=== PATIENT | female | born 1960 | race Caucasian/White ===

== ENCOUNTER 2021-04-05 14:18 | Inpatient (IN) | payer MEDICARE ==
[2021-04-05] MEDS ORDERED: Melatonin 3 MG Tab PO PRN (15:04)
--- NOTE | 2021-04-05 17:01 | PCM.HP.2 ---
H&P History of Present Illness - General Date of Service: 04/05/21 Admit Problem/Dx: Admission Diagnosis/Problem Admission Diagnosis/Problem Necrotizing fasciitis Source of Information: Patient, Old Records History Limitations: Reports: No Limitations - History of Present Illness Initial Comments - Free Text/Narative: This is a 61yo F here for swing bed admission post hospital stay for abdominal wall abscess, necrotizing fasciitis. She was discharged from [place] and continues to require dressing changes and tube feedings. Duration of Symptoms: Reports: Constant Location: Reports: Abdomen Middle Abdomen Pain Score (Numeric/FACES): 10 - Related Data Allergies/Adverse Reactions: Allergies Allergy/AdvReac Type Severity Reaction Status Date / Time hydroxyzine HCl Allergy Unknown ulcers Verified 06/07/14 17:06 [From Vistaril] hydroxyzine pamoate Allergy Unknown ulcers Verified 06/07/14 17:06 [From Vistaril] morphine Allergy Unknown Doesn't Verified 06/07/14 17:06 work metoclopramide HCl Allergy Vomiting Verified 06/07/14 19:36 [From Reglan] Penicillins Allergy Hives Verified 06/07/14 17:06 prochlorperazine edisylate Allergy Vomiting Verified 06/07/14 17:06 [From Compazine] prochlorperazine maleate Allergy Vomiting Verified 06/07/14 17:06 [From Compazine] Home Medications: Home Meds NK [No Known Home Meds] 06/07/14 [History] H&P Review of Systems - Review of Systems: Review Of Systems: Comprehensive ROS is negative, except as noted in HPI. Exam - Exam Exam: See Below - Exam General: Alert, Oriented, Cooperative HEENT: PERRLA, Conjunctiva Clear, EACs Clear Neck: Supple, Trachea Midline Lungs: Clear to Auscultation, Normal Respiratory Effort Cardiovascular: Regular Rate, Regular Rhythm GI/Abdominal Exam: Normal Bowel Sounds Back Exam: Normal Inspection Extremities: Normal Inspection - Problem List (1) Abdominal wall abscess SNOMED Code(s): 02362830 ICD Code: L02.211 - CUTANEOUS ABSCESS OF ABDOMINAL WALL Status: Resolved Priority: High Current Visit: Yes Problem Details: Requires packing (2) Necrotizing fasciitis SNOMED Code(s): 84593773 ICD Code: M72.6 - NECROTIZING FASCIITIS Status: Resolved Current Visit: No Problem List Initiated/Reviewed/Updated: Yes Orders Last 24hrs: Active Orders 24 hr Category Date Time Status Admission Status [Patient Status] [ADT] Routine ADT 04/05/21 11:00 Active Activity as Tolerated [RC] .Routine Care 04/05/21 12:00 Active Wound Care [RC] BID Care 04/05/21 11:00 Active Soft Diet [DIET] Diet 04/05/21 Lunch Ordered CORONAVIRUS COVID-19 RAPID [MOLEC] Routine Lab 04/05/21 16:47 Ordered CULTURE MRSA [RM] Routine Lab 04/05/21 13:00 Ordered Acetaminophen [TylenoL] Med 04/05/21 15:14 Active 650 mg JTUBE Q6H PRN Enoxaparin [Lovenox] Med 04/06/21 08:00 Active 40 mg SUBCUT DAILY Heparin Sodium [Heparin Lock Flush 100 Units/ML] Med 04/05/21 22:00 Active 100 unit FLUSH Q8HR Lidocaine 5% [Lidoderm 5%] Med 04/06/21 08:00 Active 700 mg TOP DAILY Melatonin Med 04/05/21 15:05 Active 3 mg JTUBE BEDTIME PRN Multivitamins [Children's Chewable Vitamin] Med 04/06/21 08:00 Active 1 tab JTUBE DAILY Non-Formulary Medication [NF Drug] Med 04/05/21 16:00 Active 1 each TOP BID Piperacillin/Tazobactam [Zosyn] 4.5 gm Med 04/05/21 16:00 Active Sodium Chloride 0.9% [Normal Saline] 100 ml IV Q8H Sodium Chloride 0.9% [Normal Saline] Med 04/05/21 22:00 Active 20 ml FLUSH Q8HR Zolpidem [Ambien] Med 04/05/21 15:17 Active 5 mg JTUBE BEDTIME PRN tiZANidine [Zanaflex] Med 04/05/21 20:00 Active 2 mg JTUBE BID traMADol [Ultram] Med 04/05/21 18:00 Active 50 mg JTUBE Q6H Medication Orders Acetaminophen (Acetaminophen 325 Mg Tab) 650 mg JTUBE Q6H PRN PRN Reason: Pain Enoxaparin Sodium (Enoxaparin 40 Mg/0.4 Ml Syringe) 40 mg SUBCUT DAILY ALEJANDRO Heparin Sodium (Porcine) (Heparin Sodium 100 Units/Ml 30 Ml Mdv) 100 unit FLUSH Q8HR ALEJANDRO Piperacillin Sod/Tazobactam (Sod 4.5 gm/ Sodium Chloride) 100 mls @ 25 mls/hr IV Q8H [facility] Stop: 04/10/21 16:01 Lidocaine (Lidocaine 5% 700 Mg Patch) 700 mg TOP DAILY ALEJANDRO Melatonin (Melatonin 3 Mg Tab) 3 mg JTUBE BEDTIME PRN PRN Reason: Insomnia Multivitamins/Minerals/Vitamin C (Multivitamin, Childrens Tab.Chew) 1 tab JTUBE DAILY [facility] Acetic Acid Solution 0.25% Irrigation Soln 1 each TOP BID ALEJANDRO Sodium Chloride (Sodium Chloride 0.9% 20 Ml Sdv) 20 ml FLUSH Q8HR ALEJANDRO Tizanidine HCl (Tizanidine 2 Mg Tab) 2 mg JTUBE BID ALEJANDRO Tramadol HCl (Tramadol 50 Mg Tab) 50 mg JTUBE Q6H [facility] Stop: 04/08/21 18:01 Zolpidem Tartrate (Zolpidem 5 Mg Tab) 5 mg JTUBE BEDTIME PRN PRN Reason: Insomnia Assessment/Plan Comment:: Patient to continue wound care, packing and enteral feedings.
[2021-04-05] MEDS: ACETIC ACID 0.25% TOP SCH ×2 (17:45→19:58)
[2021-04-05 18:01] LABS: CORONAVIRUS COVID-19 NAA NEGATIVE (NEGATIVE)
[2021-04-05] MEDS: oxyCODONE 5 MG Tab PO PRN ×2 (18:07→21:58)
[2021-04-05] MEDS: traMADol 50 MG Tab JTUBE SCH (18:08)
[2021-04-05] MEDS: Piperacillin/Tazobactam 4.5 GM in Sodium Chloride 0.9% 100 ML IV SCH (18:13)
[2021-04-05] MEDS: tiZANidine 2 MG Tab JTUBE SCH (21:59)
[2021-04-05] MEDS ORDERED: HEPARIN SODIUM FLUSH SCH (22:00)
[2021-04-05] MEDS ORDERED: Sodium Chloride 0.9% 20 ML SDV FLUSH SCH (22:00)
[2021-04-05] MEDS: Melatonin 3 MG Tab JTUBE PRN (23:00)
[2021-04-05] MEDS: Zolpidem 5 MG Tab JTUBE PRN (23:00)
[2021-04-06] MEDS: traMADol 50 MG Tab JTUBE SCH ×4 (00:42→17:33)
[2021-04-06] MEDS: Sodium Chloride 0.9% 20 ML SDV FLUSH SCH ×3 (04:27→20:14)
[2021-04-06] MEDS: HEPARIN SODIUM FLUSH SCH ×2 (04:27→11:48)
[2021-04-06] MEDS: Multivitamin, Childrens Tab.Chew JTUBE SCH (07:26)
[2021-04-06] MEDS: oxyCODONE 5 MG Tab PO PRN ×3 (07:26→19:20)
[2021-04-06] MEDS: tiZANidine 2 MG Tab JTUBE SCH ×2 (07:26→19:20)
[2021-04-06] MEDS: Piperacillin/Tazobactam 4.5 GM in Sodium Chloride 0.9% 100 ML IV SCH ×4 (07:38→16:12)
[2021-04-06] MEDS: Enoxaparin 40 MG/0.4 ML Syringe SUBCUT SCH (07:41)
[2021-04-06] MEDS: Lidocaine 5% 700 MG Patch TOP SCH (07:43)
[2021-04-06] MEDS ORDERED: Tuberculin, PPD 5 Units/0.1 ML 1 ML MDV IDERM ONE (08:00)
[2021-04-06] MEDS: Ondansetron 4 MG/2 ML SDV IVPUSH PRN ×2 (08:51→17:33)
[2021-04-06] MEDS: Acetaminophen 325 MG Tab JTUBE PRN (16:18)
[2021-04-06] MEDS: Melatonin 3 MG Tab JTUBE PRN (23:30)
[2021-04-06] MEDS: Zolpidem 5 MG Tab JTUBE PRN (23:30)
[2021-04-07] MEDS: traMADol 50 MG Tab JTUBE SCH ×5 (04:39→23:40)
[2021-04-07] MEDS: Sodium Chloride 0.9% 20 ML SDV FLUSH SCH ×3 (04:41→20:43)
[2021-04-07] MEDS: Enoxaparin 40 MG/0.4 ML Syringe SUBCUT SCH (07:50)
[2021-04-07] MEDS: Lidocaine 5% 700 MG Patch TOP SCH (07:50)
[2021-04-07] MEDS: tiZANidine 2 MG Tab JTUBE SCH ×2 (07:51→20:43)
[2021-04-07] MEDS: Multivitamin, Childrens Tab.Chew JTUBE SCH (07:51)
[2021-04-07] MEDS: Piperacillin/Tazobactam 4.5 GM in Sodium Chloride 0.9% 100 ML IV SCH ×5 (07:53→23:41)
[2021-04-07] MEDS: oxyCODONE 5 MG Tab PO PRN ×2 (09:45→20:43)
[2021-04-07] MEDS: HEPARIN SODIUM FLUSH SCH (12:02)
[2021-04-07] MEDS: Ondansetron 4 MG/2 ML SDV IVPUSH PRN (20:44)
[2021-04-07] MEDS: Melatonin 3 MG Tab JTUBE PRN (23:40)
[2021-04-07] MEDS: Zolpidem 5 MG Tab JTUBE PRN (23:40)
[2021-04-08] MEDS: Sodium Chloride 0.9% 20 ML SDV FLUSH SCH ×3 (04:18→20:30)
[2021-04-08] MEDS: traMADol 50 MG Tab JTUBE SCH ×3 (05:39→18:19)
[2021-04-08] MEDS: Enoxaparin 40 MG/0.4 ML Syringe SUBCUT SCH (08:44)
[2021-04-08] MEDS: Multivitamin, Childrens Tab.Chew JTUBE SCH (08:45)
[2021-04-08] MEDS: Piperacillin/Tazobactam 4.5 GM in Sodium Chloride 0.9% 100 ML IV SCH ×3 (09:33→23:43)
[2021-04-08] MEDS: oxyCODONE 5 MG Tab PO PRN ×2 (09:40→20:15)
[2021-04-08] MEDS: Lidocaine 5% 700 MG Patch TOP SCH (09:40)
[2021-04-08] MEDS: Ondansetron 4 MG/2 ML SDV IVPUSH PRN (09:53)
[2021-04-08] MEDS: tiZANidine 2 MG Tab JTUBE SCH ×2 (10:00→20:15)
[2021-04-08] MEDS: HEPARIN SODIUM FLUSH SCH ×2 (12:57→13:36)
[2021-04-08] MEDS: Zolpidem 5 MG Tab JTUBE PRN (22:30)
[2021-04-08] MEDS: Melatonin 3 MG Tab JTUBE PRN (22:31)
[2021-04-09] MEDS: Sodium Chloride 0.9% 20 ML SDV FLUSH SCH ×3 (04:05→20:45)
[2021-04-09] MEDS: Multivitamin, Childrens Tab.Chew JTUBE SCH (08:08)
[2021-04-09] MEDS: oxyCODONE 5 MG Tab PO PRN ×3 (08:08→19:21)
[2021-04-09] MEDS: tiZANidine 2 MG Tab JTUBE SCH ×2 (08:10→19:22)
[2021-04-09] MEDS: Lidocaine 5% 700 MG Patch TOP SCH (08:10)
[2021-04-09] MEDS: Enoxaparin 40 MG/0.4 ML Syringe SUBCUT SCH (08:11)
[2021-04-09] MEDS: Ondansetron 4 MG/2 ML SDV IVPUSH PRN ×2 (08:16→21:41)
[2021-04-09] MEDS: Piperacillin/Tazobactam 4.5 GM in Sodium Chloride 0.9% 100 ML IV SCH ×3 (08:20→23:28)
[2021-04-09] MEDS: HEPARIN SODIUM FLUSH SCH ×2 (12:47→20:45)
[2021-04-09] MEDS ORDERED: Non-Formulary Medication 1 Each IM ONE (13:00)
[2021-04-09] MEDS ORDERED: COVID-19 VACC, MRNA(MODERNA)/PF 100 MCG/0.5 ML VIAL IM ONE (13:00)
[2021-04-09] MEDS: Zolpidem 5 MG Tab JTUBE PRN (23:04)
[2021-04-09] MEDS: Melatonin 3 MG Tab JTUBE PRN (23:04)
[2021-04-10] MEDS: HEPARIN SODIUM FLUSH SCH (03:50)
[2021-04-10] MEDS: Sodium Chloride 0.9% 20 ML SDV FLUSH SCH (03:50)
[2021-04-10] MEDS: Acetaminophen 325 MG Tab JTUBE PRN (04:40)
[2021-04-10] MEDS: oxyCODONE 5 MG Tab PO PRN ×2 (04:41→08:24)
[2021-04-10] MEDS: Piperacillin/Tazobactam 4.5 GM in Sodium Chloride 0.9% 100 ML IV SCH (08:23)
[2021-04-10] MEDS: Multivitamin, Childrens Tab.Chew JTUBE SCH (08:24)
[2021-04-10] MEDS: tiZANidine 2 MG Tab JTUBE SCH (08:24)
[2021-04-10] MEDS: Enoxaparin 40 MG/0.4 ML Syringe SUBCUT SCH (08:27)
[2021-04-10] MEDS: Lidocaine 5% 700 MG Patch TOP SCH (08:29)
[2021-04-10] MEDS: Ondansetron 4 MG/2 ML SDV IVPUSH PRN (08:49)
[2021-04-10 10:45] VITALS: BP 106/44; PULSE 84
--- NOTE | 2021-04-10 10:57 | PCM.DCSUM1 ---
Discharge Summary - Hospital Course HPI Initial Comments: This is a 61[facility] F [facility] for dressing changes, medication dosing, tube feeding and pain management post abdominal wall abscess and necrotizing fasciitis. Brief History: Dressing changes have gone well with no concerns. Patient in good spirits without any concerns. - Discharge Data Discharge Date: 04/10/21 Discharge Disposition: Home, Self-Care 01 Condition: Good - Referral to Home Health Primary Care Physician: PCP None - Discharge Diagnosis/Problem(s) (1) Abdominal wall abscess SNOMED Code(s): 71802314 ICD Code: L02.211 - CUTANEOUS ABSCESS OF ABDOMINAL WALL Status: Resolved Priority: High Current Visit: Yes Problem Details: Requires packing (2) Necrotizing fasciitis SNOMED Code(s): 00846393 ICD Code: M72.6 - NECROTIZING FASCIITIS Status: Resolved Current Visit: No - Patient Instructions Diet: Usual Diet as Tolerated Activity: As Tolerated - Discharge Plan *PRESCRIPTION DRUG MONITORING PROGRAM REVIEWED*: Yes *COPY OF PRESCRIPTION DRUG MONITORING REPORT IN PATIENT ALHAJI: Yes Prescriptions/Med Rec: oxyCODONE 5 mg PO Q12HR PRN #20 tablet PRN Reason: Pain Home Medications: Home Meds Acetaminophen [Tylenol] 650 mg JTUBE Q6H PRN tablet 04/10/21 [Rx] Lidocaine 5% [Lidoderm 5%] 700 mg TOP DAILY patch 04/10/21 [Rx] Melatonin 3 mg JTUBE BEDTIME PRN tablet 04/10/21 [Rx] Multivitamins [Children's Chewable Vitamin] 1 tab JTUBE DAILY tab.chew 04/10/21 [Rx] Zolpidem [Ambien] 5 mg JTUBE BEDTIME PRN tablet 04/10/21 [Rx] oxyCODONE 5 mg PO Q12HR PRN #20 tablet 04/10/21 [Rx] - Discharge Summary/Plan Comment DC Time >30 min.: No Discharge Summary/Plan Comment: Continue dressing changes and packing as directed. Patient to followup with PCP in the next few days. Return to ER or clinic if any concerns arise. Follow up with surgery as scheduled. Discharge education given. - Patient Data Vitals - Most Recent: Last Vital Signs Temp 36.7 C 04/10/21 10:00 Pulse 84 04/10/21 10:00 Resp 20 04/10/21 10:00 BP 106/44 L 04/10/21 10:00 Pulse Ox 100 04/10/21 10:00 Weight - Most Recent: 59.874 kg I&O - Last 24 hours: Intake & Output 04/09/21 04/10/21 04/10/21 22:59 06:59 14:59 Intake Total 1634 2680 Output Total 300 Balance 1334 2680 Med Orders - Current: Current Medications Acetaminophen (Acetaminophen 325 Mg Tab) 650 mg JTUBE Q6H PRN PRN Reason: Pain Last Admin: 04/10/21 04:40 Dose: 650 mg Documented by: Enoxaparin Sodium (Enoxaparin 40 Mg/0.4 Ml Syringe) 40 mg SUBCUT DAILY [facility] Last Admin: 04/10/21 08:27 Dose: 40 mg Documented by: Heparin Sodium (Porcine) (Heparin Sodium 100 Units/Ml 30 Ml Mdv) 500 unit FLUSH 1200 ALEJANDRO Last Admin: 04/10/21 03:50 Dose: 500 unit Documented by: Piperacillin Sod/Tazobactam (Sod 4.5 gm/ Sodium Chloride) 100 mls @ 25 mls/hr IV Q8H [facility] Stop: 04/10/21 16:01 Last Admin: 04/10/21 08:23 Dose: 25 mls/hr Documented by: Lidocaine (Lidocaine 5% 700 Mg Patch) 700 mg TOP DAILY [facility] Last Admin: 04/10/21 08:29 Dose: 700 mg Documented by: Melatonin (Melatonin 3 Mg Tab) 3 mg JTUBE BEDTIME PRN PRN Reason: Insomnia Last Admin: 04/09/21 23:04 Dose: 3 mg Documented by: Multivitamins/Minerals/Vitamin C (Multivitamin, Childrens Tab.Chew) 1 tab JTUBE DAILY [facility] Last Admin: 04/10/21 08:24 Dose: 1 tab Documented by: Ondansetron HCl (Ondansetron 4 Mg/2 Ml Sdv) 4 mg IVPUSH Q6H PRN PRN Reason: Nausea/Vomiting Last Admin: 04/10/21 08:49 Dose: 4 mg Documented by: Oxycodone HCl (Oxycodone 5 Mg Tab) 5 mg PO Q4H PRN PRN Reason: Pain Last Admin: 04/10/21 08:24 Dose: 5 mg Documented by: Sodium Chloride (Sodium Chloride 0.9% 20 Ml Sdv) 20 ml FLUSH 0400,1200,2000 [facility] Last Admin: 04/10/21 03:50 Dose: 20 ml Documented by: Tizanidine HCl (Tizanidine 2 Mg Tab) 2 mg JTUBE BID [facility] Last Admin: 04/10/21 08:24 Dose: 2 mg Documented by: Zolpidem Tartrate (Zolpidem 5 Mg Tab) 5 mg JTUBE BEDTIME PRN PRN Reason: Insomnia Last Admin: 04/09/21 23:04 Dose: 5 mg Documented by: Discontinued Medications COVID-19 Vaccine mRNA LNP-S (MOD) (PF) (Covid-19 Vacc, Mrna(Moderna)/Pf 100 Mcg/0.5 Ml Vial) 100 mcg IM .ONCE ONE Stop: 04/09/21 13:01 Last Admin: 04/09/21 16:42 Dose: 100 mcg Documented by: Heparin Sodium (Porcine) (Heparin Sodium 100 Units/Ml 30 Ml Mdv) 100 unit FLUSH Q8HR [facility] Last Admin: 04/05/21 21:59 Dose: 100 unit Documented by: Heparin Sodium (Porcine) (Heparin Sodium 100 Units/Ml 30 Ml Mdv) 100 unit FLUSH 0400,1200,2000 [facility] Last Admin: 04/06/21 11:48 Dose: 100 unit Documented by: Heparin Sodium (Porcine) (Heparin Sodium 100 Units/Ml 30 Ml Mdv) 500 unit FLUSH DAILY [facility] Last Admin: 04/08/21 12:57 Dose: Not Given Documented by: Melatonin (Melatonin 3 Mg Tab) 3 mg PO BEDTIME PRN PRN Reason: Insomnia Acetic Acid Solution 0.25% Irrigation Soln 1 each TOP BID [facility] Last Admin: 04/05/21 19:58 Dose: Not Given Documented by: Non-Formulary Medication (Non-Formulary Medication 1 Each) 1 each IM ONETIME ONE Stop: 04/09/21 13:01 Last Admin: 04/09/21 19:01 Dose: 1 each Documented by: Sodium Chloride (Sodium Chloride 0.9% 20 Ml Sdv) 20 ml FLUSH Q8HR [facility] Last Admin: 04/05/21 22:00 Dose: 20 ml Documented by: Tramadol HCl (Tramadol 50 Mg Tab) 50 mg JTUBE Q6H [facility] Stop: 04/08/21 18:01 Last Admin: 04/08/21 18:19 Dose: 50 mg Documented by: Tuberculin PPD (Tuberculin, Ppd 5 Units/0.1 Ml 1 Ml Mdv) 5 unit IDERM ONETIME ONE Stop: 04/06/21 08:01 Last Admin: 04/06/21 12:03 Dose: 5 unit Documented by:
== END 2021-04-10 12:50 | disposition home or self-care (01) | DRG 602 ==
LOC: LB.MS 15:57
PROVIDERS: ADMIT Family Medicine; ATTEND Family Medicine
DX: L02.211 Cutaneous abscess of abdominal wall (principal); M72.6 Necrotizing fasciitis; Z88.5 Allergy status to narcotic agent; Z88.8 Allergy status to other drugs, medicaments and biological substances; Z88.0 Allergy status to penicillin; Z20.822 Contact with and (suspected) exposure to COVID-19
CPT/HCPCS: 86580; 87070; 91301; A9270-GY; J1642; J1650; J2405; J2543; U0002

== ENCOUNTER 2023-05-06 21:45 | Emergency (ER) | payer MEDICARE ==
[2023-05-06] MEDS ORDERED: Ondansetron 4 MG/2 ML SDV IVPUSH ONE ×2 (22:26→23:36)
[2023-05-06] MEDS ORDERED: Sodium Chloride 0.9% 1,000 ML IV ONE (22:26)
[2023-05-06] MEDS ORDERED: Ketorolac 30 MG/ML SDV IVPUSH ONE (22:26)
[2023-05-06] MEDS ORDERED: Ketorolac 30 MG/ML SDV ONE (22:48)
[2023-05-06] MEDS ORDERED: Ondansetron 4 MG/2 ML SDV ONE ×2 (22:49→23:40)
[2023-05-06] MEDS ORDERED: HYDROmorphone 2 MG/ML Syringe IVPUSH ONE ×2 (23:15→23:36)
[2023-05-06] MEDS ORDERED: HYDROmorphone 2 MG/ML Syringe ONE (23:17)
[2023-05-06] MEDS ORDERED: Ondansetron 4 MG Tab.DIS ONE (23:30)
[2023-05-06] MEDS ORDERED: Acetaminophen/HYDROcodone 325-5 MG Tab ONE (23:30)
== END 2023-05-07 00:20 | disposition home or self-care (01) ==
LOC: LB.ED 21:45
DX: G43.909 Migraine, unspecified, not intractable, without status migrainosus (principal); Z88.0 Allergy status to penicillin; Z88.8 Allergy status to other drugs, medicaments and biological substances
CPT/HCPCS: 96361; 96374; 96375; 96376; 99283; A9270; J1170; J1642; J1885; J2405; J7030; Q0162

== ENCOUNTER 2023-07-08 19:02 | Emergency (ER) | payer MEDICARE ==
[2023-07-08] MEDS ORDERED: HYDROmorphone 2 MG/ML Syringe IVPUSH ONE ×2 (19:46→20:25)
[2023-07-08] MEDS ORDERED: Ondansetron 4 MG/2 ML SDV IVPUSH ONE (19:46)
[2023-07-08] MEDS ORDERED: Ondansetron 4 MG/2 ML SDV ONE (20:02)
[2023-07-08] MEDS ORDERED: HYDROmorphone 2 MG/ML Syringe ONE (20:03)
[2023-07-08 20:09] LABS: BASOPHILS ABSOLUTE AUTO 0.05 K/uL (0.02-0.10); BASOPHILS PERCENT AUTO 0.5 % (0.0-0.5); EOSINOPHILS ABSOLUTE AUTO 0.13 K/uL (0.04-0.40); EOSINOPHILS PERCENT AUTO 1.4 % (1.0-5.0); HEMATOCRIT 37.7 % (37.0-47.0); HEMOGLOBIN 12.4 g/dL (11.5-16.5); LYMPHOCYTES ABSOLUTE AUTO 2.31 K/uL (1.50-4.00); LYMPHOCYTES PERCENT AUTO 24.9 % (20.0-40.0); MEAN CORPUSCULAR HEMOGLOBIN 29.1 pg (27.0-32.0); MEAN CORPUSCULAR HGB CONC 32.9 g/dL (31.0-35.0); MEAN CORPUSCULAR VOLUME 89 fL (76-96); MEAN PLATELET VOLUME 9.5 fL (6.0-10.0); MONOCYTES ABSOLUTE AUTO 0.67 K/uL (0.20-0.80); MONOCYTES PERCENT AUTO 7.2 % (3.0-10.0); NEUTROPHILS ABSOLUTE AUTO 6.13 K/uL (2.00-7.50); PLATELET COUNT,PLT 213 K/uL (150-500); RED BLOOD CELL COUNT 4.26 M/uL (3.80-5.80); RED CELL DISTRIBUTION WIDTH 14.2 % (11.0-16.0); WHITE BLOOD CELL COUNT,WBC 9.3 K/uL (4.0-11.0)
[2023-07-08 20:34] LABS: ALBUMIN 3.1 g/dL (3.4-5.0); ANION GAP 10.8 mmol/L (5.0-15.0); BILIRUBIN TOTAL 0.2 mg/dL (0.0-1.0); BUN/CREATININE RATIO 27.3 (6-25); CALCIUM 8.3 mg/dL (8.5-10.1); CARBON DIOXIDE,CO2 27.9 mmol/L (21.0-32.0); CREATININE 0.66 mg/dL (0.55-1.02); EST CRCL DRUG DOSING (CG) 69.9 mL/min; POTASSIUM,K 3.7 mmol/L (3.5-5.1); PROTEIN TOTAL,TP 6.1 g/dL (6.4-8.2)
[2023-07-08] MEDS ORDERED: Acetaminophen/oxyCODONE 325-5 MG Tab ONE (21:00)
[2023-07-08] MEDS ORDERED: Ondansetron 4 MG Tab.DIS ONE (21:00)
[2023-07-08] MEDS ORDERED: Ketorolac 30 MG/ML SDV ONE (21:22)
[2023-07-08] MEDS ORDERED: Ketorolac 30 MG/ML SDV IVPUSH ONE (21:22)
== END 2023-07-08 21:50 | disposition home or self-care (01) ==
LOC: LB.ED 19:02
DX: K80.20 Calculus of gallbladder without cholecystitis without obstruction (principal); Z88.5 Allergy status to narcotic agent; Z88.0 Allergy status to penicillin; Z88.8 Allergy status to other drugs, medicaments and biological substances; Z86.73 Personal history of transient ischemic attack (TIA), and cerebral infarction without residual deficits
CPT/HCPCS: 36415; 74176; 80053; 83605; 83690; 85025; 96374; 96375; 99284; A9270; J1170; J1642; J1885; J2405; Q0162; 99283

== ENCOUNTER 2023-07-09 14:30 | Emergency (ER) | payer MEDICARE ==
[2023-07-09] MEDS ORDERED: Sodium Chloride 0.9% 1,000 ML IV ONE (17:46)
[2023-07-09] MEDS ORDERED: HYDROmorphone 2 MG/ML Syringe IVPUSH ONE ×2 (18:29→18:52)
[2023-07-09 18:30] LABS: BASOPHILS ABSOLUTE AUTO 0.04 K/uL (0.02-0.10); BASOPHILS PERCENT AUTO 0.4 % (0.0-0.5); EOSINOPHILS ABSOLUTE AUTO 0.03 K/uL (0.04-0.40); EOSINOPHILS PERCENT AUTO 0.3 % (1.0-5.0); HEMATOCRIT 38.6 % (37.0-47.0); HEMOGLOBIN 12.8 g/dL (11.5-16.5); LYMPHOCYTES ABSOLUTE AUTO 0.81 K/uL (1.50-4.00); LYMPHOCYTES PERCENT AUTO 7.5 % (20.0-40.0); MEAN CORPUSCULAR HGB CONC 33.2 g/dL (31.0-35.0); MEAN CORPUSCULAR VOLUME 88 fL (76-96); MONOCYTES ABSOLUTE AUTO 0.35 K/uL (0.20-0.80); MONOCYTES PERCENT AUTO 3.3 % (3.0-10.0); NEUTROPHILS PERCENT AUTO 88.5 % (45.0-70.0); PLATELET COUNT,PLT 165 K/uL (150-500); RED BLOOD CELL COUNT 4.41 M/uL (3.80-5.80); RED CELL DISTRIBUTION WIDTH 14.1 % (11.0-16.0); WHITE BLOOD CELL COUNT,WBC 10.7 K/uL (4.0-11.0)
[2023-07-09] MEDS ORDERED: Ondansetron 4 MG/2 ML SDV IVPUSH ONE (18:30)
[2023-07-09] MEDS ORDERED: Ondansetron 4 MG/2 ML SDV ONE (18:31)
[2023-07-09] MEDS ORDERED: HYDROmorphone 2 MG/ML Syringe ONE (18:31)
[2023-07-09 18:50] LABS: A/G RATIO 0.9 (0.8-2.0); ALBUMIN 2.9 g/dL (3.4-5.0); BILIRUBIN TOTAL 0.6 mg/dL (0.0-1.0); BUN/CREATININE RATIO 27.1 (6-25); CALCIUM 8.4 mg/dL (8.5-10.1); CARBON DIOXIDE,CO2 25.6 mmol/L (21.0-32.0); CREATININE 0.59 mg/dL (0.55-1.02); EST CRCL DRUG DOSING (CG) 78.19 mL/min; POTASSIUM,K 3.6 mmol/L (3.5-5.1)
[2023-07-09] MEDS ORDERED: Ondansetron 4 MG Tab.DIS PO ONE (19:56)
[2023-07-09] MEDS ORDERED: Ondansetron 4 MG Tab.DIS ONE (19:58)
[2023-07-09 21:10] VITALS: BP 101/53; PULSE 71
== END 2023-07-09 20:10 ==
LOC: LB.ED 14:30
DX: R10.11 Right upper quadrant pain (principal); Z88.5 Allergy status to narcotic agent; Z88.0 Allergy status to penicillin; Z88.8 Allergy status to other drugs, medicaments and biological substances; Z86.73 Personal history of transient ischemic attack (TIA), and cerebral infarction without residual deficits; Z72.0 Tobacco use
CPT/HCPCS: 36415; 74019; 80053; 83605; 83690; 85025; 96361; 96374; 96375; 99285; 99285-25; J1170; J1642; J2405; J7030; Q0162

== ENCOUNTER 2023-07-24 19:40 | Emergency (ER) | payer MEDICARE ==
[2023-07-24] MEDS ORDERED: HYDROmorphone 2 MG/ML Syringe IM ONE (20:10)
[2023-07-24] MEDS ORDERED: Acetaminophen/oxyCODONE 325-5 MG Tab ONE (20:30)
== END 2023-07-24 20:35 | disposition home or self-care (01) ==
LOC: LB.ED 19:40
DX: K80.20 Calculus of gallbladder without cholecystitis without obstruction (principal); F17.210 Nicotine dependence, cigarettes, uncomplicated; Z86.73 Personal history of transient ischemic attack (TIA), and cerebral infarction without residual deficits; Z88.0 Allergy status to penicillin; Z88.5 Allergy status to narcotic agent; Z88.8 Allergy status to other drugs, medicaments and biological substances
CPT/HCPCS: 96372; 99283; A9270-GY; J1170